=== PATIENT | male | born 1985 | race American Indian/Alaskan Native ===

== ENCOUNTER 2021-02-16 12:46 | Emergency (ER) | payer SELFPAY ==
--- NOTE | 2021-02-16 13:54 | Emergency Department Report ---
HPI - General Chief Complaint: Extremity Problem,Nontraumatic Time Seen by Provider: 02/16/21 13:44 - HPI HPI: MSE 3 Patient is a 33-year-old male present with chief complaint of right hip pain. Patient states for 1 week he has had pain in his right hip. Patient denies any specific traumatic injury. Patient states he has not noticed swelling in his groin. ED Past Medical Hx - Past Medical History Previous Medical History?: Yes Hx Asthma: Yes - Surgical History Past Surgical History?: No - Family History Family history: no significant - Social History Substance Use Type: Cocaine (Crack), Marijuana - Medications Home Medications: Home Medications Medication Instructions Recorded Confirmed Last Taken Type Cyclobenzaprine [Flexeril] 10 mg PO TID PRN #10 tablet 02/16/21 Unknown Rx HYDROcodone/APAP 5-325 [[place] 1 - 2 each PO Q6HR PRN #14 tablet 02/16/21 Unknown Rx 5/325] Ibuprofen [Motrin 800 MG tab] 800 mg PO Q8HR PRN #20 tablet 02/16/21 Unknown Rx ED Review of Systems ROS: Stated complaint: HIP PAIN Other details as noted in HPI Constitutional: no symptoms reported Eyes: denies: eye pain ENT: denies: throat pain Respiratory: no symptoms reported Cardiovascular: denies: chest pain Endocrine: no symptoms reported Gastrointestinal: denies: abdominal pain Genitourinary: denies: dysuria Neurological: denies: headache Physical Exam - Physical Exam Vital Signs: Vital Signs 02/16/21 13:36 Temperature 98.2 F Pulse Rate 54 L Respiratory 16 Rate Blood Pressure 105/61 O2 Sat by Pulse 99 Oximetry Physical Exam: GENERAL: The patient is well-developed well-nourished male lying on stretcher not appearing to be in acute distress. [] HEENT: Normocephalic. Atraumatic. Extraocular motions are intact. Patient has moist mucous membranes. NECK: Supple. Trachea midline CHEST/LUNGS: Clear to auscultation. There is no respiratory distress noted. HEART/CARDIOVASCULAR: Regular. There is no tachycardia. There is no gallop rub or murmur. ABDOMEN: Abdomen is soft, nontender. Patient has normal bowel sounds. There is no abdominal distention. SKIN: There is no rash. There is no edema. There is no diaphoresis. NEURO: The patient is awake, alert, and oriented. The patient is cooperative. The patient has no focal neurologic deficits. The patient has normal speech. GCS 15 MUSCULOSKELETAL: Positive straight leg raise test on the right. There is no pain elicited with resistance to external rotation of the right hip. There is no evidence of acute injury. ED Course Vital Signs 02/16/21 13:36 Temperature 98.2 F Pulse Rate 54 L Respiratory 16 Rate Blood Pressure 105/61 O2 Sat by Pulse 99 Oximetry ED Medical Decision Making - Radiology Data Radiology results: report reviewed (Right hip x-ray, lumbar spine x-ray), image reviewed (Lumbar spine x-ray, right hip x-ray) interpreted by me: Lumbar spine x-ray-no acute fractures, Right hip x-ray-no acute fracture or dislocation [address] [address] XRay Report Signed Patient: PATI ROSE JR MR#: [id number] : 1985 Acct:[id number] Age/Sex: 35 / M ADM Date: 02/16/21 Loc: ED Attending Dr: Ordering Physician: AYAD SIERRA MD Date of Service: 02/16/21 Procedure(s): XR hip 2-3V RT Accession Number(s): [id number] cc: AYAD SIERRA MD Fluoro Time In Minutes: XR hip 2-3V RT INDICATION / CLINICAL INFORMATION: Pain, no trauma. COMPARISON: None available. FINDINGS: No acute fracture. Normal alignment. Joint spaces are preserved. No destructive osseous lesion or suspicious periosteal reaction. Impression: 1.No acute fracture. Signer Name: Hill Mcginnis MD Signed: 02/16/2021 2:50 PM Workstation Name: [id number] Transcribed By: CS Dictated By: Hill Mcginnis MD Electronically Authenticated By: Hill Mcginnis MD Signed Date/Time: 02/16/21 145 DD/ 49 TD/TT: Print Cancel [address] [address] XRay Report Signed Patient: PATI ROSE JR MR#: [id number] : Acct:[id number] Age/Sex: 35 / M ADM Date: 02/16/21 Loc: ED Attending Dr: Ordering Physician: AYAD SIERRA MD Date of Service: 02/16/21 Procedure(s): XR spine lumbosacral 2-3V Accession Number(s): [id number] cc: AYAD SIERRA MD Fluoro Time In Minutes: XR spine lumbosacral 2-3V HISTORY: Pain COMPARISON: None. TECHNIQUE: 3 view(s) of the lumbar spine obtained. FINDINGS: Vertebrae: Normal alignment. Vertebral body heights are preserved. Spondylosis:Disc space heights are preserved. IMPRESSION: 1. No significant abnormality of the lumbar spine. Signer Name: Hill Mcginnis MD Signed: 02/16/2021 2:50 PM Workstation Name: [id number] Transcribed By: CS Dictated By: Hill Mcginnis MD Electronically Authenticated By: Hill Mcginnis MD Signed Date/Time: 02/16/21 1450 DD/ 1449 TD/TT: Print Cancel - Differential Diagnosis Lumbar radiculopathy, sciatica, piriformis syndrome, AVN Critical care attestation.: If time is entered above; I have spent that time in minutes in the direct care of this critically ill patient, excluding procedure time. ED Disposition Clinical Impression: Sciatica Disposition: 01 HOME / SELF CARE / HOMELESS Is pt being admited?: No Does the pt Need Aspirin: No Condition: Stable Instructions: Radicular Pain, Sciatica, [id number] Additional Instructions: Return to the emergency department should you develop worsening symptoms, inability to tolerate food or liquids, high fever or any other concerns Prescriptions: Cyclobenzaprine [Flexeril] 10 mg PO TID PRN #10 tablet PRN Reason: Muscle Spasm Ibuprofen [Motrin 800 MG tab] 800 mg PO Q8HR PRN #20 tablet PRN Reason: Pain, Moderate (4-6) HYDROcodone/APAP 5-325 [[place] 5/325] 1 - 2 each PO Q6HR PRN #14 tablet PRN Reason: Pain Referrals: FIDENCIO BRISENO MD [Staff Physician] - 3-5 Days (Dr. Briseno is an orthopedic surgeon. Please follow-up with him for further evaluation) Time of Disposition: 14:58
[2021-02-16] MEDS ORDERED: KETOROLAC 60 MG/2 ML INJ IM ONE (14:42)
--- NOTE | 2021-02-16 14:54 | XRay Report ---
XR spine lumbosacral 2-3V HISTORY: Pain COMPARISON: None. TECHNIQUE: 3 view(s) of the lumbar spine obtained. FINDINGS: Vertebrae: Normal alignment. Vertebral body heights are preserved. Spondylosis:Disc space heights are preserved. IMPRESSION: 1. No significant abnormality of the lumbar spine. Signer Name: Hill Mcginnis MD Signed: 02/16/2021 2:50 PM Workstation Name: Dr[employer]
--- NOTE | 2021-02-16 14:54 | XRay Report ---
XR hip 2-3V RT INDICATION / CLINICAL INFORMATION: Pain, no trauma. COMPARISON: None available. FINDINGS: No acute fracture. Normal alignment. Joint spaces are preserved. No destructive osseous lesion or s uspicious periosteal reaction. Impression: 1.No acute fracture. Signer Name: Hill Mcginnis MD Signed: 02/16/2021 2:50 PM Workstation Name: [employer]
[2021-02-16 16:15] VITALS: BP 117/84
== END 2021-02-16 16:15 | disposition home or self-care (01) ==
LOC: EDBD → ED 12:46
DX: M54.31 Sciatica, right side (principal); M25.551 Pain in right hip; J45.909 Unspecified asthma, uncomplicated; F12.90 Cannabis use, unspecified, uncomplicated; F14.90 Cocaine use, unspecified, uncomplicated; Z79.899 Other long term (current) drug therapy
CPT/HCPCS: 72100; 73502; 96372; 99283; J1885